=== PATIENT | male | born 1975 | race Caucasian/White ===

== ENCOUNTER 2017-02-04 09:48 | Emergency (ER) | payer SELFPAY ==
[~2017-02-04 09:48] MED LIST: MELATIN3 MG PO; THERA-M1 EACH PO; VIIBRYD20 MG PO; VITAMIN B1100 MG PO
--- NOTE | 2017-02-08 10:18 | NUR ---
Received SAD person referral. Spoke with pt. Pt states his wound is healing fine and has no concerns about it. Deny current thoughts or a plan to harm self. States he is about out of his lexapro. States this was prescribed to him when he was in custodial. Informed pt he will need to establish care with a PCP. Pt plans to contact [facility] or [facility] to make an appt. Pt is aware of [facility]. Pt states there are no refills on his current script for lexapro. Pt aware he needs to get a new script ordered from a doctor and enroll in a medication assistance program.
--- NOTE | 2017-02-11 13:49 | ER ---
ADMIT: 02/04/2017 RM/LOC: ER [facility] MR#: [id number] [id number] [place], [place] [address] TOMMY KIM [address] [facility] [address] [place] [address] Emergency Room Report SEX: M AGE: 41 : 1975 DATE: 02/04/2017 ADDENDUM: CHIEF COMPLAINT: Left eye irritation. HISTORY OF PRESENT ILLNESS: This 41-year-old, who was at work. He had a wire that he was trying to make as a makeshift belt. The belt broke, he was bending it and tip of the wire caught his left eye. He does have an abrasion, I am sending home with Terramycin ointment, have him use that for the next 7 days. Did tell him that he is not to wear contacts for the next week and follow up with the supervisor trust accounts either tomorrow or Wednesday to re-evaluate and then have him follow him to the healing process. CLINICAL IMPRESSION: Abrasion to left eye. SOL Chavarria / Christopher Luis MD / alyson JOB #: [id number] CC: Christopher Luis MD, Attending Physician Herson Toledo MD, Family Physician
== END 2017-02-04 11:20 | disposition home or self-care (01) ==
LOC: ER 09:48
DX: T15.02XA Foreign body in cornea, left eye, initial encounter (principal); F17.210 Nicotine dependence, cigarettes, uncomplicated; F32.9 Major depressive disorder, single episode, unspecified; Z86.19 Personal history of other infectious and parasitic diseases; W22.8XXA Striking against or struck by other objects, initial encounter; Y92.69 Other specified industrial and construction area as the place of occurrence of the external cause; Y99.0 Civilian activity done for income or pay

== ENCOUNTER → 2017-03-02 | Outpatient (CLI) | payer OTHER ==
--- NOTE | 2017-03-02 16:12 | NUR ---
ALCOHOL/DRUG TEST AND EVALUATION 2 HRS: Clt was present as directed by his canine enforcement officer, Sydney Frederick. See written eval for test results and recommendations.
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
== END | disposition home or self-care (01) ==
LOC: ADTC.GI 12:24
DX: F10.20 Alcohol dependence, uncomplicated (principal); F12.20 Cannabis dependence, uncomplicated; F15.20 Other stimulant dependence, uncomplicated